=== PATIENT | female | born 1965 | race Two or more races ===

== ENCOUNTER → 2019-03-24 | Outpatient (CLI) | payer OTHER | END | disposition home or self-care (01) | LOC: MRI 15:02 | DX: M25.562 Pain in left knee (principal) | CPT/HCPCS: 73721 ==

== ENCOUNTER 2021-06-03 12:01 | Outpatient (CLI) | payer OTHER | END 2021-06-03 12:13 | disposition home or self-care (01) | LOC: MAMO-SONO 12:01 | PROVIDERS: ATTEND Specialist | DX: N60.21 Fibroadenosis of right breast (principal); D25.1 Intramural leiomyoma of uterus ==